=== PATIENT | female | born 1975 | race Caucasian/White ===

== ENCOUNTER 2018-04-27 00:05 | Emergency (ER) | payer MEDICARE, MEDICAID ==
[2018-04-27] MEDS ORDERED: NS 0.9% 1000 ML* 1,000 ML IV ONE (00:13)
[2018-04-27] MEDS ORDERED: Ketorolac TAB * 10 MG TAB PO PRN (00:13)
[2018-04-27] MEDS ORDERED: Metoprolol Tartrate TAB* 50 mg PO ONE (00:36)
--- NOTE | 2018-04-27 00:40 | ED ---
Hypertension - HPI Summary HPI Summary: Patient is mother who brought her son in for mental health evaluation, complaining of elevated blood pressure, headache/dry mouth/feeling hot x 30 mins, and anxiousness about her son. Patient states she did not take her second dose of metoprolol 50 mg today. States baseline BP is usually around 120 /80. Denies hx of headache, neck stiffness, vision chnage, focal defict, fever , cough, sore throat, CP, SOB, N/V/D, abdominal pain, change in urine, change in BM. Medical history is HTN, hypo-prolactinemia, anxiety. - History of Current Complaint Chief Complaint: EDHypertension Stated Complaint: HIGH BP Time Seen by Provider: 04/27/18 00:11 Hx Obtained From: Patient Onset/Duration: Started Minutes Ago Timing: Constant Associated Signs & Symptoms: Anxiety/Stress, Headaches - Risk Factors Cardiac Risk Factors: Hypertension - Allergies/Home Medications Allergies/Adverse Reactions: Allergies Allergy/AdvReac Type Severity Reaction Status Date / Time meperidine [From Demerol] Allergy Palpitation Verified 04/27/18 00:08 s morphine Allergy Palpitation Verified 04/27/18 00:08 s Home Medications: Home Medications Fenofibrate 150 mg .ROUTE DAILY 04/27/18 [History Confirmed 04/27/18] Fish Oil (NF) 1,000 mg PO DAILY 04/27/18 [History Confirmed 04/27/18] LORazepam TAB(*) [Ativan 0.5 MG TAB (*)] 0.5 mg PO DAILY 04/27/18 [History Confirmed 04/27/18] Lamictal 50 mg PO DAILY 04/27/18 [History Confirmed 04/27/18] Metoprolol Tartrate TAB* [Lopressor TAB*] 50 mg PO BID 04/27/18 [History Confirmed 04/27/18] Vitamin B12 500 mg PO DAILY 04/27/18 [History Confirmed 04/27/18] Vitamin D TAB* 500 mg PO DAILY 04/27/18 [History Confirmed 04/27/18] PMH/Surg Hx/FS Hx/Imm Hx Endocrine/Hematology History: Denies: Hx Anticoagulant Therapy Cardiovascular History: Denies: Hx Cardiac Arrest History: Denies: Hx Dialysis Neurological History: Denies: Hx CVA Infectious Disease History: No Infectious Disease History: Denies: Traveled Outside the [place] in Last 30 Days - Social History Alcohol Use: None Substance Use Type: Reports: None Smoking Status (MU): Never Smoked Tobacco Review of Systems Constitutional: Negative Eyes: Negative ENT: Negative Cardiovascular: Negative Respiratory: Negative Gastrointestinal: Negative Genitourinary: Negative Musculoskeletal: Negative Skin: Negative Positive: Headache Positive: Anxious All Other Systems Reviewed And Are Negative: Yes Physical Exam Triage Information Reviewed: Yes Vital Signs On Initial Exam: Initial Vitals Temp Pulse Resp BP Pulse Ox 97.1 F 69 20 163/101 99 04/27/18 00:08 04/27/18 00:08 04/27/18 00:08 04/27/18 00:08 04/27/18 00:08 Vital Signs Reviewed: Yes Appearance: Positive: Well-Appearing Skin: Positive: Warm Head/Face: Positive: Normal Head/Face Inspection Eyes: Positive: Normal Neck: Positive: Supple Respiratory/Lung Sounds: Positive: Clear to Auscultation Cardiovascular: Positive: Normal Abdomen Description: Positive: Nontender Musculoskeletal: Positive: Normal Neurological: Positive: Normal Psychiatric: Positive: Normal AVPU Assessment: Alert - Devine Coma Scale Best Eye Response: 4 - Spontaneous Best Motor Response: 6 - Obeys Commands Best Verbal Response: 5 - Oriented Coma Scale Total: 15 Diagnostics - Vital Signs Vital Signs Temp Pulse Resp BP Pulse Ox 04/27/18 00:08 97.1 F 69 20 163/101 99 - Laboratory Lab Statement: Any lab studies that have been ordered have been reviewed, and results considered in the medical decision making process. - EKG 1 Cardiac Rate: NL EKG Rhythm: Sinus Rhythm ST Segment: Normal Ectopy: PVCs Hypertension Course/Dx - Course Course Of Treatment: Patient is mother who brought her son in for mental health evaluation, complaining of elevated blood pressure, headache/dry mouth/feeling hot x 30 mins, and anxiousness about her son. Patient states she did not take her second dose of metoprolol 50 mg today. States baseline BP is usually around 120/80. Denies hx of headache, neck stiffness, vision chnage, focal defict, fever, cough, sore throat, CP, SOB, N/V/D, abdominal pain, change in urine, change in BM. Medical history is HTN, hypo-prolactinemia, anxiety. Vital signs within normal limits and stable. Blood pressure 163/101. Patient states she could not take her second dose of metoprolol tartrate 50 mg at as she was here with her son who was admitted to mental health, was given her usual dose of metoprolol tartrate 50 mg by mouth here in ED, and 30 mg IV Toradol and 1 L of fluids for headache. Patient resting comfortably. BP 129/ 76. Follow-up with primary care. - Diagnoses Provider Diagnoses: Headache, Anxiousness Discharge - Sign-Out/Discharge Documenting (check all that apply): Patient Departure - Discharge Plan Condition: Stable Disposition: HOME Patient Education Materials: Stress (ED), Acute Headache (ED), Anxiety (ED) Referrals: No Primary Care Phys,NOPCP [Medical Doctor] - Additional Instructions: Follow-up with primary care. Return to the ED for any new or worsening symptoms - Billing Disposition and Condition Condition: STABLE Disposition: Home
[2018-04-27] MEDS ORDERED: Ketorolac INJ* 30 MG/ML 1 ML VIAL IV ONE (00:57)
[2018-04-27 02:23] VITALS: BP 117/68
== END 2018-04-27 02:22 | disposition home or self-care (01) ==
LOC: ED 00:05
DX: R51 Headache (principal); F41.9 Anxiety disorder, unspecified
CPT/HCPCS: 93005; 99283; A9270-GY; J1885

== ENCOUNTER 2018-09-13 08:31 | Inpatient (IN) | payer MEDICARE, MEDICAID ==
[2018-09-13 10:09] LABS: Urine Appearance Cloudy; Urine Bilirubin Negative (Negative); Urine Blood Negative (Negative); Urine Color Yellow; Urine Glucose Negative (Negative); Urine Ketones Negative (Negative); Urine Nitrite Negative (Negative); Urine Protein Negative (Negative); Urine Specific Gravity 1.015 (1.010-1.030); Urine Urobilinogen Negative (Negative)
--- NOTE | 2018-09-13 10:09 | ED ---
Psychiatric Complaint - HPI Summary HPI Summary: Patient presents to ED with suicidal ideations and plan (overdose on pills at home). She reports yesterday her mom called [facility] and the CPS worker agreed that she may lose her children due to her lack of consistent care with her oldest son , 17 y.o., who has behavioral and mental health issues - he also has a counselor and is on PINS. This patient reports she lost her children 10 years ago d/t substance abuse/dependence and has worked very hard to get him back so hearing this news was very traumatic for her. She reports she has not been coping well since hearing this news yesterday and developed voices which she states she has when she feels suicidal. She told her last night she wanted to come to the hospital for evaluation but he was worried about it affecting her case to keep her kids however she realized today this is the best place for her. She made arrangements prior to coming here for her children to be safe and have an emergency crisis visit with yessy counselor as she knew this would be hard not only for her but also for them. She is currently reeling from this potential decision of having her children taken away - she feels she has been very involved in her own mental health care as well as her children's to make everything work in their home. She does admit recent stressors have been the fact that she has had to reduce her Lamictal due to elevated liver enzymes. She thinks this may be affecting her ability to cope with stress recently however she is continuing to use her own coping mechanisms such as DBT, speaking with her peer advocate and counselor, etc. She also admits her oldest son recently underwent some stress himself resulting in suicidal ideations where she brought him to the emergency department for eval. CPS is telling her that she triggered him by doing this however she was quite worried about him and felt it was the right thing to do. She reports a history of substance abuse which is why she lost her children 10 years ago. She states she has been "clean" for many years now and attends all of her mental health appointments as well as makes valiant efforts to get her children to their mental health appointments. She does admit she is to an alcoholic which is why she made arrangements for her children to go with someone else last night instead of staying with him as he has already been deemed unfit to care for her children. She reports her suicidal ideations have been triggered by the thought of losing her children as she states "I told myself if I lose them again, I don't think I can go on". Although she mentioned "I was looking at my pill bottles last night ", she denies overdosing on any of her medications or ingesting any other substances in an effort to end her life. She does report she took one Ativan which is prescribed to her as needed. Furthermore she admits she has not taken these in many months as she has been doing quite well. - History Of Current Complaint Chief Complaint: EDMentalHealth Time Seen by Provider: 09/13/18 08:41 Hx Obtained From: Patient - Allergies/Home Medications Allergies/Adverse Reactions: Allergies Allergy/AdvReac Type Severity Reaction Status Date / Time meperidine [From Demerol] Allergy Palpitation Verified 09/13/18 08:33 s morphine Allergy Palpitation Verified 09/13/18 08:33 s PMH/Surg Hx/FS Hx/Imm Hx Previously Healthy: Yes Endocrine/Hematology History: Reports: Other Endocrine/Hematological Disorders - pituitary dysfunction, MARCELINA - on hormone therapy Denies: Hx Anticoagulant Therapy, Hx Diabetes, Hx Thyroid Disease, Hx Anemia Cardiovascular History: Denies: Hx Cardiac Arrest History: Denies: Hx Dialysis Neurological History: Denies: Hx CVA Psychiatric History: Reports: Hx Inpatient Treatment - h/o inpt tx [facility], Hx Community Mental Health Tx, Hx Substance Abuse - "clean" for many years Infectious Disease History: No Infectious Disease History: Denies: Traveled Outside the [place] in Last 30 Days - Family History Known Family History: Positive: Other - son w / bipolar d/o, ETOH abuse - Social History Lives: With Family - and children Alcohol Use: Occasionally - once a month Hx Substance Use: Yes - h/o - "clean" for many years Hx Tobacco Use: No Smoking Status (MU): Never Smoked Tobacco Review of Systems Constitutional: Negative Eyes: Negative ENT: Negative Cardiovascular: Negative Respiratory: Negative Gastrointestinal: Other - reduced appetite since news from CPS Positive: no symptoms reported Musculoskeletal: Negative Skin: Negative Neurological: Negative Psychological: Other - SI w/ plan Positive: Anxious All Other Systems Reviewed And Are Negative: Yes Physical Exam Triage Information Reviewed: Yes Vital Signs On Initial Exam: Initial Vitals Temp Pulse Resp BP Pulse Ox 98.2 F 97 19 142/104 98 01/10/19 08:33 09/13/18 08:33 09/13/18 08:33 09/13/18 08:33 09/13/18 08:33 Vital Signs Reviewed: Yes Appearance: Positive: Well-Appearing - tearful, Well-Nourished Skin: Positive: Warm, Skin Color Reflects Adequate Perfusion, Dry - no signs of self harm Head/Face: Positive: Normal Head/Face Inspection Eyes: Positive: Normal, EOMI, Conjunctiva Clear ENT: Positive: Normal ENT inspection, Hearing grossly normal, Pharynx normal - mucosa moist Neck: Positive: Supple - no gross thyromegaly Respiratory/Lung Sounds: Positive: Clear to Auscultation, Breath Sounds Present Cardiovascular: Positive: Normal, RRR, S1, S2 Abdomen Description: Positive: Nontender, No Organomegaly, Soft Bowel Sounds: Positive: Present Musculoskeletal: Positive: Normal, Strength/ROM Intact Neurological: Positive: Normal, Sensory/Motor Intact, Alert, Oriented to Person Place, Time, CN Intact II-III Psychiatric: Positive: Anxious - SI w/ plan, tearful but consolable - no apparent hallucinations during interview, presents as rational - Rodman Coma Scale Best Eye Response: 4 - Spontaneous Best Motor Response: 6 - Obeys Commands Best Verbal Response: 5 - Oriented Coma Scale Total: 15 Diagnostics - Vital Signs Vital Signs Temp Pulse Resp BP Pulse Ox 09/13/18 08:33 98.2 F 97 19 142/104 98 - Laboratory Result Diagrams: 09/13/18 10:02 09/13/18 10:02 Lab Statement: Any lab studies that have been ordered have been reviewed, and results considered in the medical decision making process. Course/Dx - Course Course Of Treatment: SI w/ plan and previous OD and bipolar d/o. HAs outpt support but feels she's in crisis currently due to situation around her rights as a parent/child custody. Medically cleared for [facility]. UPDATE: Will be admitted here to [facility] on voluntary basis. - Differential Dx/Clinical Impression Provider Diagnosis: Suicidal ideation, Bipolar disorder Discharge - Sign-Out/Discharge Documenting (check all that apply): Patient Departure - Discharge Plan Condition: Stable [facility] [place] [facility] Billing Disposition and Condition Condition: STABLE Disposition: Psychiatric Facility [facility] [place]
[2018-09-13 10:11] LABS: ABS Basophils 0 10^3/ul (0-0.2); ABS Eosinophils 0 10^3/ul (0-0.6); ABS Lymphocytes 1.7 10^3/ul (1.0-4.8); ABS Monocytes 0.3 10^3/ul (0-0.8); ABS Nucleated RBC 0 10^3/ul; Eosinophil % 0.4 %; Hematocrit 41 % (35-47); Hemoglobin 13.8 g/dl (12.0-16.0); Lymphocyte % 33.3 %; Mean Corpuscular HGB Conc 34 g/dl (31-36); Mean Corpuscular Hemoglobin 30 pg (27-31); Mean Corpuscular Volume 89 fL (80-97); Mean Platelet Volume 8.7 fL (7.4-10.4); Nucleated Red Blood Cells % 0.1; Platelet Count 316 10^3/ul (150-450); Red Blood Count 4.58 10^6/ul (4.00-5.40); Red Cell Distribution Width 13 % (10.5-15); White Blood Count 5.1 10^3/ul (3.5-10.8)
[2018-09-13 10:30] LABS: Barbiturates Urine Screen None Detected (None Detect); Benzodiazepine Urine Screen None Detected (None Detect); Urine Cannabinoids Screen None Detected (None Detect)
[2018-09-13 10:35] LABS: ALT 40 U/L (7-52); AST 25 U/L (13-39); Albumin 4.3 g/dL (3.2-5.2); Albumin/Globulin Ratio 1.3 (1-3); Alkaline Phosphatase 57 U/L (34-104); Anion Gap 8 mmol/L (2-11); BUN/Creatinine Ratio 18.3 (8-20); Blood Urea Nitrogen 15 mg/dL (6-24); CO2 Carbon Dioxide 25 mmol/L (22-32); Chloride 105 mmol/L (101-111); EGFR Non-African American 76.5 (>60); Globulin 3.2 g/dL (2-4); Glucose 119 mg/dL (70-100); Potassium 3.9 mmol/L (3.5-5.0); Sodium 138 mmol/L (135-145); Total Protein 7.5 g/dL (6.4-8.9)
[2018-09-13 10:57] LABS: Acetaminophen < 15 mcg/mL; Alcohol < 10 mg/dL (<10); Salicylate < 2.50 mg/dL (<30)
[2018-09-13 11:09] LABS: TSH (Thyroid Stimulating Horm) 0.98 mcIU/mL (0.34-5.60)
[2018-09-13] MEDS ORDERED: Al Hydrox/Mg Hydrox/Simet LIQ* 30 ML UDC PO PRN (12:27)
[2018-09-13] MEDS ORDERED: Acetaminophen TAB* 325 MG PO PRN (12:27)
[2018-09-13 13:09] LABS: Cholesterol 170 mg/dL; HDL Cholesterol 59.7 mg/dL; LDL Cholesterol 90 mg/dL; Triglycerides 102 mg/dL
[2018-09-13] MEDS: Metoprolol Tartrate TAB* 50 mg PO SCH (21:10)
[2018-09-14] MEDS: hydrOXYzine HCL TAB* 50 MG PO PRN ×2 (00:11→23:12)
[2018-09-14] MEDS ORDERED: FENOFIBRATE 150 MG PO SCH (09:00)
[2018-09-14] MEDS: Metoprolol Tartrate TAB* 50 mg PO SCH ×2 (09:00→22:06)
--- NOTE | 2018-09-14 11:21 | PN ---
MHU: Group Therapy Note - Service Type Service Type: 10518 Group Psychotherapy - Cognitive Behavioral Group Therapy ( CBT):Patient was attentive and participatory in CBT programming this morning, and remained in good behavioral control. Patient expressed positive insights regarding relevant treatment interventions and goals.
[2018-09-14] MEDS ORDERED: lamoTRIgine TAB(*) 25 MG PO ONE (16:30)
[2018-09-14] MEDS ORDERED: Loperamide CAP* 2 MG PO ONE (16:34)
[2018-09-14] MEDS ORDERED: [UNRECOGNIZED DRUG - OTHER] PO PRN (17:00)
[2018-09-14] MEDS ORDERED: [UNRECOGNIZED DRUG - OTHER] PO SCH (17:00)
[2018-09-14] MEDS: FISH OIL 1200 MG PO SCH (17:59)
[2018-09-14] MEDS: FENOFIBRATE 145 MG PO SCH (18:00)
[2018-09-14] MEDS: CYANOCOBALAMIN 500 MCG PO SCH (18:00)
[2018-09-14] MEDS: EVENING PRIMROSE OIL TOPICAL SCH (21:35)
[2018-09-14] MEDS: CABERGOLINE 0.5 MG PO SCH (21:36)
--- NOTE | 2018-09-14 23:35 | HP ---
CONTINUATION ADDENDUM NOW INCLUDED ON THIS REPORT HISTORY AND PHYSICAL: DATE OF ADMISSION: 09/13/18 PROVIDER: Dalila Alford NP in Psychiatry. SUPERVISING PHYSICIAN: Gavin Lepe MD * (DICTATED BY DALILA ALFORD NP ) JUSTIFICATION FOR ADMISSION: The patient is in need of 24-hour supervision and care secondary to suicidal ideation with plan. CHIEF COMPLAINT: "I was thinking of taking my blood pressure medications because I wanted to go to sleep and not wake up." HISTORY OF PRESENT ILLNESS: The patient is a 42-year-old female with a history of bipolar disorder as well as borderline personality disorder who arrives brought in by her and is here on a voluntary status following her children being taken temporarily away from her by CPS and given to her mother, which caused her to fall to pieces and have suicidal thoughts that included a plan to take her blood pressure medications. Delma has been hospitalized periodically since age 19. This is her first hospitalization in 5 years and she is quite distressed that that is the case. She states that she has in the recent past been able to use coping strategies, yet without using those coping strategies, all she can think about are her children. Her is not completely supportive of her. He is also an alcoholic. CPS states that she is essentially choosing to stay with an alcoholic in preference over her children. She states that she must have the children, otherwise she will "go over the edge....she cannot breathe without them." The children's names are Joon and Mumtaz. Joon is 17, Mumtaz is 14. CONTINUATION ADDENDUM: PAST PSYCHIATRIC HISTORY: She has been admitted before to the hospital starting at age 19. Her last hospitalization was in 2013 and she is frustrated with herself for going back to the hospital. She states at age 32, she was diagnosed with bipolar 2 disorder as well as borderline personality disorder. Throughout her life, she has had 3 suicide attempts by overdose and alcohol. She had been on Lamictal 100 mg, but she reports that her liver enzymes became elevated. She would like to try 50 mg of Lamictal. She states that Depakote caused her liver enzymes to increase, Wellbutrin made her breasts hurt, Latuda and lithium both increased prolactin. She has found that Ativan has worked well , hydroxyzine has not worked at all. She states she never misuses the Ativan. She has had a 1-month prescription that has lasted for longer than 3 months. SUBSTANCE ABUSE HISTORY: Currently none, but in her past, she has used and abused several drugs. PAST MEDICAL HISTORY: Extensive and that she just reacts to many, many medications and situations. She has had significant experience with liver enzymes being elevated and impairment in her kidneys. FAMILY HISTORY: Delma was adopted and does not know her family history. SOCIAL HISTORY: She lives in [place], [place] and is to a man named Kunal Tolentino. She has a job at [employer]. She has 2 children, Joon and Mumtaz. She is involved in a CPS case that has resulted in her two children being taken from her and sent to live with her mother. There are no legal problems. REVIEW OF SYSTEMS: The patient reports feeling fatigued. She denies shortness of breath, heat or cold intolerance, chest pain or abdominal pain. She denies neurological symptoms. She denies fevers or changes in weight. PHYSICAL EXAMINATION VITAL SIGNS: On 09/13/18 at 8:30 in the morning, temperature was 98.2, pulse 97 , respirations 19, O2 sat on room air 98%, blood pressure 142/104. At 1235, the blood pressure has been reduced to 132/82. For further exam data, please see emergency department records. LABORATORY DATA: Glucose is high at 119. Hemoglobin A1c is high at 5.7. Urine, all within normal limits. Toxicology is negative. MENTAL STATUS EXAMINATION: This is a short woman with medium long dark hair, who is extremely talkative. She is cooperative, but a little agitated. Her speech has a normal rate, tone and volume, and is copious. Her mood is dysthymic. Her affect is slightly expansive. Her thought processes are normal. Her thought content is free of delusions. She is not homicidal and no longer suicidal. She has no hallucinations. Her insight is good. Her judgment is fair. She is alert and oriented x3. DIAGNOSES: [place] I: Bipolar 2 disorder. [place] II: Borderline personality disorder. PLAN: The patient is admitted to the adult behavioral health unit and placed on q.15-minute checks for her own safety. She is encouraged to participate in supportive milieu, individual and group therapies. Estimated length of stay is 3 to 7 days. We will titrate medications to efficacy and monitor for mood and thought content. Discharge planning will include family involvement and outpatient providers. DALILA ALFORD, SHERLY [id number]/CPS #: [id number]/CPS #: [id number] ROSARIO
[2018-09-14] MEDS: Benzocaine/Menthol LOZ* 1 LOZENGE PO PRN (23:40)
[2018-09-15] MEDS: Metoprolol Tartrate TAB* 50 mg PO SCH ×2 (08:43→20:36)
[2018-09-15] MEDS: EVENING PRIMROSE OIL TOPICAL SCH ×2 (08:45→20:37)
--- NOTE | 2018-09-15 14:14 | PN ---
Subjective - Subjective Date of Service: 09/15/18 Service Type: 24429 Hosp care 15 min low complexity Subjective: Americo is seen in weekend coverage for NPP, Dalila Alford. The patient complains about her alcoholic and her 17 y.o. son with ODD. She states that she needs to be here to think things through and get back on lamotrigine. She denies SI today but is very upset about her children being taken by CPS over to their grandparents' house. She feels safe and is requesting enhanced unit privileges. Objective - Appearance Appearance: Well Developed/Nourished Dysmorphic Features: No Hygiene: Normal Grooming: Well Kept - Behavior Psychomotor Activities: Normal Exhibits Abnormal Movement: No - Attitude and Relatedness Attitude and Relatedness: Cooperative Eye Contact: Fair - Speech Quality: Unpressured Latencies: Normal Quantity: Appropriate - Mood Patient's Decription of Mood: "Anxious" - Affect Observed Affect: Constricted Affect Consistent with: Dysphoria - Thought Process Patient's Thought Process: Coherent Thought Content: No Passive Wish, No Suicidal Planning, No Homicidal Ideation, No Paranoid Ideation - Sensorium Experiencing Hallucinations: No, Sensorium is Clear Type of Hallucinations: Visual: No, Auditory: No, Command: No - Level of Consciousness Level of Consciousness: Alert Orientation: Yes Intact, Yes Orientated to Time, Yes Orientated to Place, Yes Orientated to Person - Impulse Control Impulse Control: Tenuous - Insight and Judgement Insight and Judgement: Fair - Group Participation Particating in Group Activities: Yes - Medication Management Medication Management Adherence: Yes Assessment - Assessment Merits Inpatient Hospitalization: For Immediate Safety, For Stabilization Inpatient DSM-V Dx: F31.81 Clinical Impression: 42 y.o. , female with a history of bipolar disorder and borderline PD arrived at the hospital on a voluntary basis seeking inpatient care for depressed mood and SI in the context of discontinuation of mood stabilizer and family stress. MHU: Problem List - Patient Problems (1) Bipolar 2 disorder Current Visit: Yes Status: Acute Priority: High Code(s): F31.81 - BIPOLAR II DISORDER SNOMED Code(s): 00297949 Plan - Plan Treatment Plan: Name: AMERICO CHAPARRO Birthdate: 1975 [id number] Resume lamotrigine at 50mg PO qday. Continue inpatient-level care. Continued Medication Management: Continue Outpt Medication Medications: Current Medications Acetaminophen (Tylenol Tab*) 650 mg PO Q4H PRN PRN Reason: for pain; or Temp >101 F Al Hydrox/Mg Hydrox/Simethicone (Maalox Plus*) 30 ml PO Q4H PRN PRN Reason: INDIGESTION Hydroxyzine HCl (Atarax Tab*) 50 mg PO Q6H PRN PRN Reason: ANXIETY Last Admin: 09/14/18 23:12 Dose: 50 mg Lamotrigine (Lamictal Tab(*)) 50 mg PO DAILY [facility] Lorazepam (Ativan Tab(*)) 1 mg PO Q6H PRN PRN Reason: ANXIETY Metoprolol Tartrate (Lopressor Tab*) 50 mg PO BID [facility] Last Admin: 09/15/18 08:43 Dose: 50 mg Pto Nf Med* Cabergoline 0.5 Mg Tab 0.5 admin PO MoFr@2100 [facility] Last Admin: 09/14/18 21:36 Dose: 0.5 admin Pto Nf Med* Fenofibrate 145 Mg Tab 1 admin PO 1830 [facility] Last Admin: 09/14/18 18:00 Dose: 1 admin Pto Nf Med* Fish Oil (1200 Mg) 1 admin PO 1700 [facility] Last Admin: 09/14/18 17:59 Dose: 1 admin Pto Nf Med* B12 500 (Mcg) 1 admin PO 1700 [facility] Last Admin: 09/14/18 18:00 Dose: Not Given Pt Own Nf Med* Evening Gustavus Oil 1000 Mg. 1 admin TOPICAL BID [facility] Last Admin: 09/15/18 08:45 Dose: 1 admin Non Formulary Med7* (Ricola Cough Drops.) 1 admin PO Q2H PRN PRN Reason: COUGH Throat Lozenges (Chloraseptic Dorian*) 1 dorian PO Q6H PRN PRN Reason: SORE THROAT Last Admin: 09/14/18 23:40 Dose: 1 dorian - Discharge Plan Discharge Plan: Inpatient Hospitalization Lab Results - Lab Results Lab Results: 09/13/18 09/13/18 09/13/18 09:15 09:15 10:02 WBC 5.1 RBC 4.58 Hgb 13.8 Hct 41 MCV 89 MCH 30 MCHC 34 RDW 13 Plt Count 316 MPV 8.7 Neut % (Auto) 59.6 Lymph % (Auto) 33.3 Pendleton % (Auto) 5.8 Eos % (Auto) 0.4 Baso % (Auto) 0.9 Absolute Neuts (auto) 3.0 Absolute Lymphs (auto) 1.7 Absolute Monos (auto) 0.3 Absolute Eos (auto) 0 Absolute Basos (auto) 0 Absolute Nucleated RBC 0 Nucleated RBC % 0.1 Sodium Potassium Chloride Carbon Dioxide Anion Gap BUN Creatinine Est GFR ( Amer) Est GFR (Non-Af Amer) BUN/Creatinine Ratio Glucose Hemoglobin A1c Calcium Total Bilirubin AST ALT Alkaline Phosphatase Total Protein Albumin Globulin Albumin/Globulin Ratio Triglycerides Cholesterol LDL Cholesterol HDL Cholesterol TSH Urine Color Yellow Urine Appearance Cloudy Urine pH 6.0 Ur Specific Elida 1.015 Urine Protein Negative Urine Ketones Negative Urine Blood Negative Urine Nitrate Negative Urine Bilirubin Negative Urine Urobilinogen Negative Ur Leukocyte Esterase Negative Urine Glucose Negative Salicylates Urine Opiates Screen None detected Acetaminophen Ur Barbiturates Screen None detected Ur Phencyclidine Scrn None detected Ur Amphetamines Screen None detected U Benzodiazepines Scrn None detected Urine Cocaine Screen None detected U Cannabinoids Screen None detected Serum Alcohol 09/13/18 09/13/18 10:02 10:02 WBC RBC Hgb Hct MCV MCH MCHC RDW Plt Count MPV Neut % (Auto) Lymph % (Auto) Pendleton % (Auto) Eos % (Auto) Baso % (Auto) Absolute Neuts (auto) Absolute Lymphs (auto) Absolute Monos (auto) Absolute Eos (auto) Absolute Basos (auto) Absolute Nucleated RBC Nucleated RBC % Sodium 138 Potassium 3.9 Chloride 105 Carbon Dioxide 25 Anion Gap 8 BUN 15 Creatinine 0.82 Est GFR ( Amer) 92.5 Est GFR (Non-Af Amer) 76.5 BUN/Creatinine Ratio 18.3 Glucose 119 H Hemoglobin A1c 5.7 H Calcium 10.0 Total Bilirubin 0.40 AST 25 ALT 40 Alkaline Phosphatase 57 Total Protein 7.5 Albumin 4.3 Globulin 3.2 Albumin/Globulin Ratio 1.3 Triglycerides 102 Cholesterol 170 LDL Cholesterol 90 HDL Cholesterol 59.7 TSH 0.98 Urine Color Urine Appearance Urine pH Ur Specific Elida Urine Protein Urine Ketones Urine Blood Urine Nitrate Urine Bilirubin Urine Urobilinogen Ur Leukocyte Esterase Urine Glucose Salicylates < 2.50 Urine Opiates Screen Acetaminophen < 15 Ur Barbiturates Screen Ur Phencyclidine Scrn Ur Amphetamines Screen U Benzodiazepines Scrn Urine Cocaine Screen U Cannabinoids Screen Serum Alcohol < 10
[2018-09-15] MEDS: lamoTRIgine TAB(*) 25 MG PO SCH (15:22)
[2018-09-15] MEDS: FISH OIL 1200 MG PO SCH (20:36)
[2018-09-15] MEDS: FENOFIBRATE 145 MG PO SCH (20:37)
[2018-09-15] MEDS: CYANOCOBALAMIN 500 MCG PO SCH (20:39)
[2018-09-15] MEDS: hydrOXYzine HCL TAB* 50 MG PO PRN (22:35)
[2018-09-15] MEDS: Benzocaine/Menthol LOZ* 1 LOZENGE PO PRN (22:35)
[2018-09-16] MEDS: Metoprolol Tartrate TAB* 50 mg PO SCH ×3 (07:55→20:57)
[2018-09-16] MEDS: lamoTRIgine TAB(*) 25 MG PO SCH (07:56)
[2018-09-16] MEDS: Benzocaine/Menthol LOZ* 1 LOZENGE PO PRN ×2 (10:02→21:37)
[2018-09-16] MEDS: EVENING PRIMROSE OIL TOPICAL SCH ×2 (11:12→20:58)
[2018-09-16] MEDS: FISH OIL 1200 MG PO SCH (17:51)
[2018-09-16] MEDS: FENOFIBRATE 145 MG PO SCH (17:51)
[2018-09-16] MEDS: CYANOCOBALAMIN 500 MCG PO SCH (17:52)
[2018-09-17] MEDS: hydrOXYzine HCL TAB* 50 MG PO PRN (04:17)
[2018-09-17] MEDS: EVENING PRIMROSE OIL TOPICAL SCH ×2 (09:15→20:16)
[2018-09-17] MEDS: Metoprolol Tartrate TAB* 50 mg PO SCH ×2 (09:16→20:16)
[2018-09-17] MEDS: lamoTRIgine TAB(*) 25 MG PO SCH (09:16)
--- NOTE | 2018-09-17 11:30 | PN ---
MHU: Group Therapy Note - Service Type Service Type: [id number] Group Psychotherapy - CBT group note: Delma was attentive and participatory in cbt programming this morning, discussing upcoming decisions she is grappling with regarding family issues. She impresses as having good insight and judgement presently, but describes difficulties with changing medications and experiencing bipolar symptoms periodically. She is well related and empathic related with staff and peers.
[2018-09-17] MEDS: LORazepam TAB(*) 1 MG PO PRN (13:56)
--- NOTE | 2018-09-17 14:31 | HP ---
HISTORY AND PHYSICAL: DATE OF ADMISSION: 09/13/18 ADDENDUM: PAST PSYCHIATRIC HISTORY: She has been admitted before to the hospital starting at age 19. Her last hospitalization was in 2013 and she is frustrated with herself for going back to the hospital. She states at age 32, she was diagnosed with bipolar 2 disorder as well as borderline personality disorder. Throughout her life, she has had 3 suicide attempts by overdose and alcohol. She had been on Lamictal 100 mg, but she reports that her liver enzymes became elevated. She would like to try 50 mg of Lamictal. She states that Depakote caused her liver enzymes to increase, Wellbutrin made her breasts hurt, Latuda and lithium both increased prolactin. She has found that Ativan has worked well , hydroxyzine has not worked at all. She states she never misuses the Ativan. She has had a 1-month prescription that has lasted for longer than 3 months. SUBSTANCE ABUSE HISTORY: Currently none, but in her past, she has used and abused several drugs. PAST MEDICAL HISTORY: Extensive and that she just reacts to many, many medications and situations. She has had significant experience with liver enzymes being elevated and impairment in her kidneys. FAMILY HISTORY: Delma was adopted and does not know her family history. SOCIAL HISTORY: She lives in [place], [place] and is to a man named Kunal Tolentino. She has a job at [employer]. She has 2 children, Joon and Mumtaz. There are no legal problems. REVIEW OF SYSTEMS: The patient reports feeling fatigued. She denies shortness of breath, heat or cold intolerance, chest pain or abdominal pain. She denies neurological symptoms. She denies fevers or changes in weight. PHYSICAL EXAMINATION VITAL SIGNS: On 09/13/18 at 8:30 in the morning, temperature was 98.2, pulse 97 , respirations 19, O2 sat on room air 98%, blood pressure 142/104. At 1235, the blood pressure has been reduced to 132/82. For further exam data, please see emergency department records. LABORATORY DATA: Glucose is high at 119. Hemoglobin A1c is high at 5.7. Urine, all within normal limits. Toxicology is negative. MENTAL STATUS EXAMINATION: This is a short woman with medium long dark hair, who is extremely talkative. She is cooperative, but a little agitated. Her speech has a normal rate, tone and volume and is copious. Her mood is dysthymic. Her affect is slightly expansive. Her thought processes are normal. Her thought content is free of delusions. She is not homicidal and no longer suicidal. She has no hallucinations. Her insight is good. Her judgment is fair. She is alert and oriented x3. DIAGNOSES: [place] I: Bipolar 2 disorder. [place] II: Borderline personality disorder. PLAN: The patient is admitted to the adult behavioral health unit and placed on q.15-minute checks for her own safety. She is encouraged to participate in supportive milieu, individual and group therapies. Estimated length of stay is 3 to 7 days. We will titrate medications to efficacy and monitor for mood and thought content. Discharge planning will include family involvement and outpatient providers.+ MANUEL LINDSEY, SHERLY [id number]/CPS #: [id number] ROSARIO
--- NOTE | 2018-09-17 15:19 | PN ---
Subjective - Subjective Date of Service: 09/17/18 Service Type: 96244 Hosp care 25 min moderate complexity Subjective: Americo feels like her identity is very tied up in her son Joon's behavior, as well as in Mumtaz's absence from her home. She states, "If I lose my kids again , I can't live!" She is adamant and upset and tearful. She is mostly unable to refocus on herself and how she could get better. She required a dose of Ativan to calm her. Objective - Appearance Appearance: Well Developed/Nourished Dysmorphic Features: No Hygiene: Normal Grooming: Well Kept - Behavior Psychomotor Activities: Normal Exhibits Abnormal Movement: No - Attitude and Relatedness Attitude and Relatedness: Needy Eye Contact: Good - Speech Quality: Pressured Latencies: Normal Quantity: Copious - Mood Patient's Decription of Mood: "Sad" - Affect Observed Affect: Labile Affect Consistent with: Dysphoria - Thought Process Patient's Thought Process: Circumstantial Thought Content: Yes Passive Wish, Yes Suicidal Planning, No Homicidal Ideation, No Paranoid Ideation - Sensorium Experiencing Hallucinations: No, Sensorium is Clear Type of Hallucinations: Visual: No, Auditory: No, Command: No - Level of Consciousness Level of Consciousness: Agitated Orientation: Yes Intact, Yes Orientated to Time, Yes Orientated to Place, Yes Orientated to Person - Impulse Control Impulse Control: Impaired - Insight and Judgement Insight and Judgement: Poor - Group Participation Particating in Group Activities: Yes - Medication Management Medication Management Adherence: Yes Assessment - Assessment Merits Inpatient Hospitalization: For Immediate Safety, For Discharge Planning Inpatient DSM-V Dx: F31.81 Clinical Impression: 42 y.o. , female with a history of bipolar disorder and borderline PD arrived at the hospital on a voluntary basis seeking inpatient care for depressed mood and SI in the context of discontinuation of mood stabilizer and family stress. Plan - Plan Treatment Plan: Name: AMERICO CHAPARRO Birthdate: 1975 [id number] Resume lamotrigine at 50mg PO qday. Continue inpatient-level care. Add Ativan 1 mg at bedtime for sleep. Continue working with Aleyda Jeter LCSW, to interact with CPS. Medications: Current Medications Acetaminophen (Tylenol Tab*) 650 mg PO Q4H PRN PRN Reason: for pain; or Temp >101 F Al Hydrox/Mg Hydrox/Simethicone (Maalox Plus*) 30 ml PO Q4H PRN PRN Reason: INDIGESTION Hydroxyzine HCl (Atarax Tab*) 50 mg PO Q6H PRN PRN Reason: ANXIETY Last Admin: 09/17/18 04:17 Dose: 50 mg Lamotrigine (Lamictal Tab(*)) 50 mg PO DAILY [facility] Last Admin: 09/17/18 09:16 Dose: 50 mg Lorazepam (Ativan Tab(*)) 1 mg PO Q6H PRN PRN Reason: ANXIETY Last Admin: 09/17/18 13:56 Dose: 1 mg Lorazepam (Ativan Tab(*)) 1 mg PO BEDTIME [facility] Metoprolol Tartrate (Lopressor Tab*) 50 mg PO BID [facility] Last Admin: 09/17/18 09:16 Dose: 50 mg Pto Nf Med* Cabergoline 0.5 Mg Tab 0.5 admin PO MoFr@2100 [facility] Last Admin: 09/14/18 21:36 Dose: 0.5 admin Pto Nf Med* Fenofibrate 145 Mg Tab 1 admin PO 1830 [facility] Last Admin: 09/16/18 17:51 Dose: 1 admin Pto Nf Med* Fish Oil (1200 Mg) 1 admin PO 1700 [facility] Last Admin: 09/16/18 17:51 Dose: 1 admin Pto Nf Med* B12 500 (Mcg) 1 admin PO 1700 [facility] Last Admin: 09/16/18 17:52 Dose: 1 admin Pt Own Nf Med* Evening [place] Oil 1000 Mg. 1 admin TOPICAL BID [facility] Last Admin: 09/17/18 09:15 Dose: Not Given Non Formulary Med7* (Ricola Cough Drops.) 1 admin PO Q2H PRN PRN Reason: COUGH Last Admin: 09/15/18 20:37 Dose: 1 admin Throat Lozenges (Chloraseptic Dorian*) 1 dorian PO Q6H PRN PRN Reason: SORE THROAT Last Admin: 09/16/18 21:37 Dose: 1 dorian - Discharge Plan Discharge Plan: Outpatient Follow Up
[2018-09-17] MEDS: CYANOCOBALAMIN 500 MCG PO SCH (17:44)
[2018-09-17] MEDS: FISH OIL 1200 MG PO SCH (17:44)
[2018-09-17] MEDS: FENOFIBRATE 145 MG PO SCH (17:45)
[2018-09-17] MEDS: LORazepam TAB(*) 1 MG PO SCH (20:17)
[2018-09-17] MEDS: CABERGOLINE 0.5 MG PO SCH (20:59)
[2018-09-17] MEDS ORDERED: [UNRECOGNIZED DRUG - OTHER] TRANSDERM SCH (22:00)
[2018-09-17] MEDS ORDERED: ESTRADIOL TRANSDERM SCH (22:00)
[2018-09-18] MEDS: lamoTRIgine TAB(*) 25 MG PO SCH (08:24)
[2018-09-18] MEDS: Metoprolol Tartrate TAB* 50 mg PO SCH ×2 (08:24→20:52)
[2018-09-18] MEDS: EVENING PRIMROSE OIL TOPICAL SCH ×2 (08:24→20:47)
--- NOTE | 2018-09-18 11:29 | PN ---
MHU: Group Therapy Note - Service Type Service Type: [id number] Group Psychotherapy - Cognitive Behavioral Group Therapy ( CBT):Patient was attentive and participatory in CBT programming this morning, and remained in good behavioral control. Patient expressed positive insights regarding relevant treatment interventions and goals.
--- NOTE | 2018-09-18 16:05 | PN ---
Subjective - Subjective Date of Service: 09/18/18 Service Type: [id number] Hosp care 25 min moderate complexity Subjective: Juliana is very upset today. She is having a hard time finding solace in her life situation. She quickly dissolves into tears and deviates from discussion of her being powerful and returns to the old plan of drinking a bottle of wine and taking all of her medications. She states she is afraid to go home because of this eventuality. Objective - Appearance Appearance: Well Developed/Nourished Dysmorphic Features: No Hygiene: Normal Grooming: Fairly Well Kept - Behavior Psychomotor Activities: Normal Exhibits Abnormal Movement: No - Attitude and Relatedness Attitude and Relatedness: Needy Eye Contact: Good - Speech Quality: Unpressured Latencies: Normal Quantity: Copious - Mood Patient's Decription of Mood: "Anxious" - Affect Observed Affect: Tearful Affect Consistent with: Dysphoria - Thought Process Patient's Thought Process: Coherent Thought Content: Yes Passive Wish, Yes Suicidal Planning, No Homicidal Ideation, No Paranoid Ideation - Sensorium Experiencing Hallucinations: No, Sensorium is Clear Type of Hallucinations: Visual: No, Auditory: No, Command: No - Level of Consciousness Level of Consciousness: Alert Orientation: Yes Intact, Yes Orientated to Time, Yes Orientated to Place, Yes Orientated to Person - Impulse Control Impulse Control: Impaired - Insight and Judgement Insight and Judgement: Fair - Group Participation Particating in Group Activities: Yes - Medication Management Medication Management Adherence: Yes Assessment - Assessment Merits Inpatient Hospitalization: For Immediate Safety Inpatient DSM-V Dx: F31.81 Clinical Impression: 42 y.o. , female with a history of bipolar disorder and borderline PD arrived at the hospital on a voluntary basis seeking inpatient care for depressed mood and SI in the context of discontinuation of mood stabilizer and family stress. Plan - Plan Treatment Plan: Name: AMERICO CHAPARRO Birthdate: 1975 [id number] Resume lamotrigine at 50mg PO qday. Continue inpatient-level care. Add Ativan 1 mg at bedtime for sleep. Continue working with Aleyda Jeter LCSW, to interact with CPS. Continue meds as they are. Continue to pursue discussion with CPS and build a plan for discharge. Medications: Current Medications Acetaminophen (Tylenol Tab*) 650 mg PO Q4H PRN PRN Reason: for pain; or Temp >101 F Al Hydrox/Mg Hydrox/Simethicone (Maalox Plus*) 30 ml PO Q4H PRN PRN Reason: INDIGESTION Estradiol (Estradiol Patch 0.0375/Day*) 1 patch TRANSDERM .TWICE WEEKLY [facility] Last Admin: 09/17/18 21:35 Dose: 1 patch Hydroxyzine HCl (Atarax Tab*) 50 mg PO Q6H PRN PRN Reason: ANXIETY Last Admin: 09/17/18 04:17 Dose: 50 mg Lamotrigine (Lamictal Tab(*)) 50 mg PO DAILY [facility] Last Admin: 09/18/18 08:24 Dose: 50 mg Lorazepam (Ativan Tab(*)) 1 mg PO Q6H PRN PRN Reason: ANXIETY Last Admin: 09/17/18 13:56 Dose: 1 mg Lorazepam (Ativan Tab(*)) 1 mg PO BEDTIME [facility] Last Admin: 09/17/18 20:17 Dose: 1 mg Metoprolol Tartrate (Lopressor Tab*) 50 mg PO BID [facility] Last Admin: 09/18/18 08:24 Dose: 50 mg Pto Nf Med* Cabergoline 0.5 Mg Tab 0.5 admin PO MoFr@2100 [facility] Last Admin: 09/17/18 20:59 Dose: 0.5 admin Pto Nf Med* Fenofibrate 145 Mg Tab 1 admin PO 1830 [facility] Last Admin: 09/17/18 17:45 Dose: 1 admin Pto Nf Med* Fish Oil (1200 Mg) 1 admin PO 1700 [facility] Last Admin: 09/17/18 17:44 Dose: 1 admin Pt Own Nf Med* Evening [place] Oil 1000 Mg. 1 admin TOPICAL BID [facility] Last Admin: 09/18/18 08:24 Dose: 1 admin Non Formulary Med7* (Ricola Cough Drops.) 1 admin PO Q2H PRN PRN Reason: COUGH Last Admin: 09/15/18 20:37 Dose: 1 admin Pto Nf Med* B12 500 (Mcg) 1 admin PO DAILY [facility] Throat Lozenges (Chloraseptic Dorian*) 1 dorian PO Q6H PRN PRN Reason: SORE THROAT Last Admin: 09/16/18 21:37 Dose: 1 dorian - Discharge Plan Discharge Plan: Outpatient Follow Up
[2018-09-18] MEDS: FISH OIL 1200 MG PO SCH (17:42)
[2018-09-18] MEDS: FENOFIBRATE 145 MG PO SCH (17:42)
[2018-09-18] MEDS: LORazepam TAB(*) 1 MG PO PRN (19:07)
[2018-09-18] MEDS: LORazepam TAB(*) 1 MG PO SCH (21:35)
[2018-09-19] MEDS: Metoprolol Tartrate TAB* 50 mg PO SCH ×2 (08:45→21:26)
[2018-09-19] MEDS: lamoTRIgine TAB(*) 25 MG PO SCH (08:45)
[2018-09-19] MEDS: CYANOCOBALAMIN 500 MCG PO SCH (08:47)
[2018-09-19] MEDS: EVENING PRIMROSE OIL TOPICAL SCH ×2 (08:48→23:59)
[2018-09-19] MEDS: FENOFIBRATE 145 MG PO SCH (17:45)
[2018-09-19] MEDS: FISH OIL 1200 MG PO SCH (17:45)
--- NOTE | 2018-09-19 18:07 | PN ---
Subjective - Subjective Date of Service: 09/19/18 Service Type: [id number] Hosp care 25 min moderate complexity Subjective: Americo has been encouraged to focus on herself and what she needs rather than what her sons are doing and what can be done for her. She talks over others and is using therapeutic terms such as "triggered" and "affirmation" without truly processing her role in those activities. When confronted with her desire to end her life, she stated that she was feeling more responsible for her role in parenting her younger child and getting better herself. The SI is not completely gone, however. Objective - Appearance Appearance: Healthy Appearing Dysmorphic Features: No Hygiene: Normal Grooming: Well Kept - Behavior Psychomotor Activities: Normal Exhibits Abnormal Movement: No - Attitude and Relatedness Attitude and Relatedness: Needy Eye Contact: Good - Speech Quality: Unpressured Latencies: Normal Quantity: Copious - Mood Patient's Decription of Mood: "Okay" - Affect Observed Affect: Tearful Affect Consistent with: Dysphoria - Thought Process Patient's Thought Process: Coherent, Circumstantial Thought Content: Yes Passive Wish, Yes Suicidal Planning, No Homicidal Ideation, No Paranoid Ideation - Sensorium Experiencing Hallucinations: No, Sensorium is Clear Type of Hallucinations: Visual: No, Auditory: No, Command: No - Level of Consciousness Level of Consciousness: Alert Orientation: Yes Intact, Yes Orientated to Time, Yes Orientated to Place, Yes Orientated to Person - Impulse Control Impulse Control: Impaired - Insight and Judgement Insight and Judgement: Fair - Group Participation Particating in Group Activities: Yes - Medication Management Medication Management Adherence: Yes Assessment - Assessment Merits Inpatient Hospitalization: For Immediate Safety, For Stabilization Inpatient DSM-V Dx: F31.81 Clinical Impression: 42 y.o. , female with a history of bipolar disorder and borderline PD arrived at the hospital on a voluntary basis seeking inpatient care for depressed mood and SI in the context of discontinuation of mood stabilizer and family stress. Plan - Plan Treatment Plan: Name: AMERICO CHAPARRO Birthdate: 1975 [id number] Resume lamotrigine at 50mg PO qday. Continue inpatient-level care. Add Ativan 1 mg at bedtime for sleep. Continue working with Aleyda Jeter LCSW, to interact with CPS. Continue meds as they are. Continue to pursue discussion with CPS and build a plan for discharge. Discharge is tentatively set for Monday. She believes she will feel refreshed at that point and ready to face what lies ahead. Medications: Current Medications Acetaminophen (Tylenol Tab*) 650 mg PO Q4H PRN PRN Reason: for pain; or Temp >101 F Al Hydrox/Mg Hydrox/Simethicone (Maalox Plus*) 30 ml PO Q4H PRN PRN Reason: INDIGESTION Estradiol (Estradiol Patch 0.0375/Day*) 1 patch TRANSDERM .TWICE WEEKLY [facility] Last Admin: 09/17/18 21:35 Dose: 1 patch Hydroxyzine HCl (Atarax Tab*) 50 mg PO Q6H PRN PRN Reason: ANXIETY Last Admin: 09/17/18 04:17 Dose: 50 mg Lamotrigine (Lamictal Tab(*)) 50 mg PO DAILY [facility] Last Admin: 09/19/18 08:45 Dose: 50 mg Lorazepam (Ativan Tab(*)) 1 mg PO Q6H PRN PRN Reason: ANXIETY Last Admin: 09/18/18 19:07 Dose: 1 mg Lorazepam (Ativan Tab(*)) 1 mg PO BEDTIME [facility] Last Admin: 09/18/18 21:35 Dose: 1 mg Metoprolol Tartrate (Lopressor Tab*) 50 mg PO BID [facility] Last Admin: 09/19/18 08:45 Dose: 50 mg Pto Nf Med* Cabergoline 0.5 Mg Tab 0.5 admin PO MoFr@2100 [facility] Last Admin: 09/17/18 20:59 Dose: 0.5 admin Pto Nf Med* Fenofibrate 145 Mg Tab 1 admin PO 1830 [facility] Last Admin: 09/19/18 17:45 Dose: 1 admin Pto Nf Med* Fish Oil (1200 Mg) 1 admin PO 1700 [facility] Last Admin: 09/19/18 17:45 Dose: 1 admin Pt Own Nf Med* Evening [place] Oil 1000 Mg. 1 admin TOPICAL BID [facility] Last Admin: 09/19/18 08:48 Dose: 1 admin Non Formulary Med7* (Ricola Cough Drops.) 1 admin PO Q2H PRN PRN Reason: COUGH Last Admin: 09/15/18 20:37 Dose: 1 admin Pto Nf Med* B12 500 (Mcg) 1 admin PO DAILY [facility] Last Admin: 09/19/18 08:47 Dose: 1 admin Throat Lozenges (Chloraseptic Dorian*) 1 dorian PO Q6H PRN PRN Reason: SORE THROAT Last Admin: 09/16/18 21:37 Dose: 1 dorian - Discharge Plan Discharge Plan: Outpatient Follow Up
[2018-09-19] MEDS: LORazepam TAB(*) 1 MG PO SCH (21:52)
[2018-09-20] MEDS: Metoprolol Tartrate TAB* 50 mg PO SCH ×2 (09:34→20:46)
[2018-09-20] MEDS: lamoTRIgine TAB(*) 25 MG PO SCH (09:34)
[2018-09-20] MEDS: EVENING PRIMROSE OIL TOPICAL SCH ×2 (09:35→22:51)
[2018-09-20] MEDS: CYANOCOBALAMIN 500 MCG PO SCH (09:35)
--- NOTE | 2018-09-20 11:31 | PN ---
MHU: Group Therapy Note - Service Type Service Type: [id number] Group Psychotherapy - Cognitive Behavioral Group Therapy ( CBT):Patient was attentive and participatory in CBT programming this morning, and remained in good behavioral control. Patient expressed positive insights regarding relevant treatment interventions and goals.
[2018-09-20] MEDS: LORazepam TAB(*) 1 MG PO PRN (14:58)
--- NOTE | 2018-09-20 15:11 | PN ---
Subjective - Subjective Date of Service: 09/20/18 Service Type: 31670 Hosp care 15 min low complexity Subjective: Americo had a rough day today. She met with Aleyda Jeter LCSW, who accompanied her through a conference call with CPS. Americo became quite upset and was tearful throughout it, but she was able to eventually calm down and take steps to solving her own problems and making arrangements to have her own legal representation. Americo presented as more calm and emotionally put together than she did yesterday and even earlier in the day. She feels like she is making strong choices to improve her chances to get what she wants without resorting to thoughts of suicide. Objective - Appearance Appearance: Well Developed/Nourished Dysmorphic Features: No Hygiene: Normal Grooming: Well Kept - Behavior Psychomotor Activities: Normal Exhibits Abnormal Movement: No - Attitude and Relatedness Attitude and Relatedness: Needy Eye Contact: Good - Speech Quality: Unpressured Latencies: Normal Quantity: Copious - Mood Patient's Decription of Mood: "Okay" - Affect Observed Affect: Labile Affect Consistent with: Dysphoria - Thought Process Patient's Thought Process: Coherent, Goal Directed Thought Content: Yes Passive Wish, No Suicidal Planning, No Homicidal Ideation, No Paranoid Ideation - Sensorium Experiencing Hallucinations: No, Sensorium is Clear Type of Hallucinations: Visual: No, Auditory: No, Command: No - Level of Consciousness Level of Consciousness: Alert Orientation: Yes Intact, Yes Orientated to Time, Yes Orientated to Place, Yes Orientated to Person - Impulse Control Impulse Control: Tenuous - Insight and Judgement Insight and Judgement: Fair - Group Participation Particating in Group Activities: Yes - Medication Management Medication Management Adherence: Yes Assessment - Assessment Inpatient DSM-V Dx: F31.81 Clinical Impression: 42 y.o. , female with a history of bipolar disorder and borderline PD arrived at the hospital on a voluntary basis seeking inpatient care for depressed mood and SI in the context of discontinuation of mood stabilizer and family stress. Plan - Plan Treatment Plan: Name: AMERICO CHAPARRO Birthdate: 1975 [id number] Resume lamotrigine at 50mg PO qday. Continue inpatient-level care. Add Ativan 1 mg at bedtime for sleep. Continue working with Aleyda Shippos, [employer], to interact with CPS. Continue meds as they are. Continue to pursue discussion with CPS and build a plan for discharge. Discharge is tentatively set for Monday. She believes she will feel refreshed at that point and ready to face what lies ahead. CPS was contacted effectively. Americo is now preparing to work through legal issues. Medications: Current Medications Acetaminophen (Tylenol Tab*) 650 mg PO Q4H PRN PRN Reason: for pain; or Temp >101 F Al Hydrox/Mg Hydrox/Simethicone (Maalox Plus*) 30 ml PO Q4H PRN PRN Reason: INDIGESTION Estradiol (Estradiol Patch 0.0375/Day*) 1 patch TRANSDERM .TWICE WEEKLY [facility] Last Admin: 09/17/18 21:35 Dose: 1 patch Hydroxyzine HCl (Atarax Tab*) 50 mg PO Q6H PRN PRN Reason: ANXIETY Last Admin: 09/17/18 04:17 Dose: 50 mg Lamotrigine (Lamictal Tab(*)) 50 mg PO DAILY [facility] Last Admin: 09/20/18 09:34 Dose: 50 mg Lorazepam (Ativan Tab(*)) 1 mg PO Q6H PRN PRN Reason: ANXIETY Last Admin: 09/20/18 14:58 Dose: 1 mg Lorazepam (Ativan Tab(*)) 1 mg PO BEDTIME [facility] Last Admin: 09/19/18 21:52 Dose: 1 mg Metoprolol Tartrate (Lopressor Tab*) 50 mg PO BID [facility] Last Admin: 09/20/18 09:34 Dose: 50 mg Pto Nf Med* Cabergoline 0.5 Mg Tab 0.5 admin PO MoFr@2100 [facility] Last Admin: 09/17/18 20:59 Dose: 0.5 admin Pto Nf Med* Fenofibrate 145 Mg Tab 1 admin PO 1830 [facility] Last Admin: 09/19/18 17:45 Dose: 1 admin Pto Nf Med* Fish Oil (1200 Mg) 1 admin PO 1700 [facility] Last Admin: 09/19/18 17:45 Dose: 1 admin Pt Own Nf Med* Evening [place] Oil 1000 Mg. 1 admin TOPICAL BID [facility] Last Admin: 09/20/18 09:35 Dose: Not Given Non Formulary Med7* (Ricola Cough Drops.) 1 admin PO Q2H PRN PRN Reason: COUGH Last Admin: 09/15/18 20:37 Dose: 1 admin Pto Nf Med* B12 500 (Mcg) 1 admin PO DAILY [facility] Last Admin: 09/20/18 09:35 Dose: 1 admin Throat Lozenges (Chloraseptic Dorian*) 1 dorian PO Q6H PRN PRN Reason: SORE THROAT Last Admin: 09/16/18 21:37 Dose: 1 dorian - Discharge Plan Discharge Plan: Outpatient Follow Up
[2018-09-20] MEDS: FENOFIBRATE 145 MG PO SCH (17:52)
[2018-09-20] MEDS: FISH OIL 1200 MG PO SCH (17:53)
[2018-09-20] MEDS: LORazepam TAB(*) 1 MG PO SCH (20:45)
[2018-09-21] MEDS: Metoprolol Tartrate TAB* 50 mg PO SCH ×2 (09:07→21:08)
[2018-09-21] MEDS: lamoTRIgine TAB(*) 25 MG PO SCH (09:07)
[2018-09-21] MEDS: CYANOCOBALAMIN 500 MCG PO SCH (09:09)
[2018-09-21] MEDS: EVENING PRIMROSE OIL TOPICAL SCH ×2 (09:10→21:09)
--- NOTE | 2018-09-21 13:15 | PN ---
MHU: Group Therapy Note - Service Type Service Type: [id number] Group Psychotherapy - Cognitive Behavioral Group Therapy ( CBT):Patient was attentive and participatory in CBT programming this morning, and remained in good behavioral control. Patient expressed positive insights regarding relevant treatment interventions and goals.
[2018-09-21] MEDS: LORazepam TAB(*) 1 MG PO PRN (13:27)
[2018-09-21] MEDS: CABERGOLINE 0.5 MG PO SCH (21:08)
[2018-09-21] MEDS: LORazepam TAB(*) 1 MG PO SCH (22:02)
--- NOTE | 2018-09-21 22:49 | PN ---
Subjective - Subjective Date of Service: 09/21/18 Service Type: [id number] Hosp care 15 min low complexity Subjective: Amanda has managed from the hospital to obtain a excellence manager to get her younger son back. She has also had a long argument with her which required her to hang up on him twice due to his driving her truck while intoxicated. She also believes he is threatening to rehome her pets. She phoned the police who came to his house to deliver a warning. Amanda decided she wanted to go home for the weekend, as she wanted to check on her pets and her truck. Instead, she was encouraged to stay for the weekend and allow some of the chaos to calm down. She still hasn't convincingly stated that she has abandoned her plan to drink a bottle of wine and take her medication in an overdose. Objective - Appearance Appearance: Well Developed/Nourished Dysmorphic Features: No Hygiene: Normal Grooming: Well Kept - Behavior Psychomotor Activities: Normal Exhibits Abnormal Movement: No - Attitude and Relatedness Attitude and Relatedness: Superficially Cooperative Eye Contact: Good - Speech Quality: Unpressured Latencies: Normal Quantity: Copious - Mood Patient's Decription of Mood: "Upset" - Affect Observed Affect: Labile Affect Consistent with: Dysphoria - Thought Process Patient's Thought Process: Coherent, Goal Directed, Circumstantial Thought Content: Yes Passive Wish, Yes Suicidal Planning, No Homicidal Ideation, No Paranoid Ideation - Sensorium Experiencing Hallucinations: No, Sensorium is Clear Type of Hallucinations: Visual: No, Auditory: No, Command: No - Level of Consciousness Level of Consciousness: Alert Orientation: Yes Intact, Yes Orientated to Time, Yes Orientated to Place, Yes Orientated to Person - Impulse Control Impulse Control: Tenuous - Insight and Judgement Insight and Judgement: Fair - Group Participation Particating in Group Activities: Yes - Medication Management Medication Management Adherence: Yes Assessment - Assessment Inpatient DSM-V Dx: F31.81 Clinical Impression: 42 y.o. , female with a history of bipolar disorder and borderline PD arrived at the hospital on a voluntary basis seeking inpatient care for depressed mood and SI in the context of discontinuation of mood stabilizer and family stress. Plan - Plan Treatment Plan: Name: AMERICO CHAPARRO Birthdate: 1975 [id number] Resume lamotrigine at 50mg PO qday. Continue inpatient-level care. Add Ativan 1 mg at bedtime for sleep. Continue working with Aleyda Jeter LCSW, to interact with CPS. Continue meds as they are. Continue to pursue discussion with CPS and build a plan for discharge. Discharge is tentatively set for Monday. She believes she will feel refreshed at that point and ready to face what lies ahead. CPS was contacted effectively. Americo is now preparing to work through legal issues. She will be discharged Monday morning. Medications: Current Medications Acetaminophen (Tylenol Tab*) 650 mg PO Q4H PRN PRN Reason: for pain; or Temp >101 F Al Hydrox/Mg Hydrox/Simethicone (Maalox Plus*) 30 ml PO Q4H PRN PRN Reason: INDIGESTION Estradiol (Estradiol Patch 0.0375/Day*) 1 patch TRANSDERM .TWICE WEEKLY COUNT INCLUDES THE [facility] Last Admin: 09/17/18 21:35 Dose: 1 patch Hydroxyzine HCl (Atarax Tab*) 50 mg PO Q6H PRN PRN Reason: ANXIETY Last Admin: 09/17/18 04:17 Dose: 50 mg Lamotrigine (Lamictal Tab(*)) 50 mg PO DAILY COUNT INCLUDES THE [facility] Last Admin: 09/21/18 09:07 Dose: 50 mg Lorazepam (Ativan Tab(*)) 1 mg PO Q6H PRN PRN Reason: ANXIETY Last Admin: 09/21/18 13:27 Dose: 1 mg Lorazepam (Ativan Tab(*)) 1 mg PO BEDTIME COUNT INCLUDES THE [facility] Last Admin: 09/21/18 22:02 Dose: 1 mg Metoprolol Tartrate (Lopressor Tab*) 50 mg PO BID COUNT INCLUDES THE [facility] Last Admin: 09/21/18 21:08 Dose: Not Given Pto Nf Med* Cabergoline 0.5 Mg Tab 0.5 admin PO MoFr@2100 COUNT INCLUDES THE [facility] Last Admin: 09/21/18 21:08 Dose: 0.5 admin Pto Nf Med* Fenofibrate 145 Mg Tab 1 admin PO 1830 COUNT INCLUDES THE [facility] Last Admin: 09/20/18 17:52 Dose: 1 admin Pto Nf Med* Fish Oil (1200 Mg) 1 admin PO 1700 COUNT INCLUDES THE [facility] Last Admin: 09/20/18 17:53 Dose: 1 admin Pt Own Nf Med* Evening [place] Oil 1000 Mg. 1 admin TOPICAL BID GENEVA Last Admin: 09/21/18 21:09 Dose: Not Given Non Formulary Med7* (Ricola Cough Drops.) 1 admin PO Q2H PRN PRN Reason: COUGH Last Admin: 09/15/18 20:37 Dose: 1 admin Pto Nf Med* B12 500 (Mcg) 1 admin PO DAILY GENEVA Last Admin: 09/21/18 09:09 Dose: 1 admin Throat Lozenges (Chloraseptic Dorian*) 1 dorian PO Q6H PRN PRN Reason: SORE THROAT Last Admin: 09/16/18 21:37 Dose: 1 dorian - Discharge Plan Discharge Plan: Outpatient Follow Up
[2018-09-22] MEDS: Metoprolol Tartrate TAB* 50 mg PO SCH ×2 (09:21→20:41)
[2018-09-22] MEDS: lamoTRIgine TAB(*) 25 MG PO SCH (09:22)
[2018-09-22] MEDS: FENOFIBRATE 145 MG PO SCH ×2 (09:29→16:57)
[2018-09-22] MEDS: FISH OIL 1200 MG PO SCH ×2 (09:29→16:57)
[2018-09-22] MEDS: CYANOCOBALAMIN 500 MCG PO SCH (11:06)
[2018-09-22] MEDS: EVENING PRIMROSE OIL TOPICAL SCH ×2 (11:06→22:21)
[2018-09-22] MEDS: LORazepam TAB(*) 1 MG PO SCH (22:19)
[2018-09-23] MEDS: Metoprolol Tartrate TAB* 50 mg PO SCH ×2 (07:53→20:53)
[2018-09-23] MEDS: lamoTRIgine TAB(*) 25 MG PO SCH (07:53)
[2018-09-23] MEDS: EVENING PRIMROSE OIL TOPICAL SCH ×2 (09:06→22:08)
[2018-09-23] MEDS: CYANOCOBALAMIN 500 MCG PO SCH (09:06)
[2018-09-23] MEDS: FISH OIL 1200 MG PO SCH (17:11)
[2018-09-23] MEDS: FENOFIBRATE 145 MG PO SCH (17:11)
[2018-09-23] MEDS: LORazepam TAB(*) 1 MG PO SCH (22:07)
[2018-09-24 08:16] VITALS: BP 118/65
[2018-09-24] MEDS: Metoprolol Tartrate TAB* 50 mg PO SCH (08:33)
[2018-09-24] MEDS: lamoTRIgine TAB(*) 25 MG PO SCH (08:33)
[2018-09-24] MEDS: EVENING PRIMROSE OIL TOPICAL SCH (08:34)
[2018-09-24] MEDS: CYANOCOBALAMIN 500 MCG PO SCH (08:34)
--- NOTE | 2018-09-24 13:50 | DS ---
DISCHARGE SUMMARY: DATE OF ADMISSION: 09/13/18 DATE OF DISCHARGE: 09/24/18 PROVIDER: Dalila Alford NP in Psychiatry. SUPERVISING PHYSICIAN: Dr. Gavin Lepe.* (DICTATED BY DALILA ALFORD NP ) DIAGNOSES: [place] I: Bipolar 2 disorder. [place] II: Borderline personality disorder. CONDITION AT THE TIME OF DISCHARGE: Improved, psychiatrically cleared, stable. Delma participated in groups and was social with peers. Her is agreeable to discharge. She has done well here psychiatrically. She tolerated medication changes well. She will be attending [facility]. MENTAL STATUS EXAMINATION: At the time of discharge, Delma is calm, cooperative, and makes good eye contact. She is alert and oriented x3. Her grooming is good. Her speech pace is slow to normal. Her thought processes are logical. She is not psychotic or delusional. She denies AH, VH, SI, and HI. Her insight and judgment are fair. She is willing to follow up and she is urged to see her therapist. DISCHARGE INSTRUCTIONS TO THE PATIENT: A. Medications: 1. Estradiol patch 0.035 per day. 2. Hydroxyzine HCl 50 mg p.r.n. anxiety q.6 hours, dispensed 30. 3. Lamictal 50 mg daily, dispensed 60. 4. Metoprolol 50 mg b.i.d. Several non-formulary medications includin. Fenofibrate. 2. Fish oil. 3. B12. 4. Vitamin D. 5. Evening primrose oil. B. Diet is regular. C. Activities are as tolerated. Delma is a nonsmoker. There are no studies pending at the time of discharge. D. Followup care: She has an appointment on 09/26/18 with her therapist, Chichi , at 4:45 p.m. She also is referred to seeing her primary care physician who is Anel Calixto within 30 days of discharge. E. Substance abuse followup is not indicated. HOSPITAL COURSE: Part A: Chief Complaint: "I was thinking of taking my blood pressure medications because I wanted to go to sleep and not wake up." The patient is a 42-year-old female with a history of bipolar disorder as well as borderline personality disorder, who arrives brought in by her and is here on a voluntary status following her children being taken temporarily away from her by CPS and given to her mother, which caused her to fall to pieces and have suicidal thoughts that included a plan to take her blood pressure medications. Delma has been hospitalized periodically since age 19. This is her first hospitalization in 5 years and she is quite distressed that that is the case. She states that she has in the recent past been able to use coping strategies, yet without using those coping strategies, all she could think about are her children. Her is not completely supportive of her. He is also an alcoholic. CPS states that she has essentially chosen to stay with an alcoholic in preference to her children. She states she must have the children , otherwise she will "go over the edge...she cannot breathe without them." The children's names are Joon and Mumtaz. Joon is 17, Mumtaz is 14. Part B: Psychiatric treatment was rendered. Delma was admitted to the adult behavioral unit and placed on 15-minute checks for safety. She did advance to 30- minute checks. Delma did well on the unit and went to groups. She interacted with peers well. She tolerated the increase of Lamictal to 50 mg. she also tolerated the use of hydroxyzine and Ativan. She was taking Ativan 1 mg to help her sleep, which was discontinued over the past weekend in order to prepare her for discharge where she would be without Ativan at all. She is taking multiple supplements whose function is unknown, but she takes them and is quite satisfied with them. These have been continued from home. She is not on an antipsychotic. We did not meet with the family, but much of her time here was spent on the phone or doing paperwork related to her family. She wrote many journal entries related to her dissatisfaction with her older son, Joon and her desire to have her younger son Mumtaz come and live with her. She also worried about the fact that her mother has a negative influence on the children and this is based on her experience as a child with the same mom. Delma has a court date on Monday and she has prepared for this by asking her to move out, by asking her product management internship to please ask for custody of her younger son back while allowing her older son to stay with her mother as she has many problems with Joon, the older son and cannot manage him effectively it would seem. No consults were entered. She is improved. She is no longer suicidal. She appears sad and her symptoms regarding lack of being completely independent of other peoples opinions and what she needs to do is slightly of concern. DALILA ALFORD, [employer]OKER [id number]/CPS #: [id number] [place]AR[place]
== END 2018-09-24 11:20 | disposition home or self-care (01) | DRG 885 ==
LOC: ED 08:31 → BSU 15:19
PROVIDERS: ADMIT Psychiatry & Neurology Psychiatry; ATTEND Psychiatry & Neurology Psychiatry
DX: F31.81 Bipolar II disorder (principal); R45.851 Suicidal ideations; F60.3 Borderline personality disorder; Z09 Encounter for follow-up examination after completed treatment for conditions other than malignant neoplasm; Z88.5 Allergy status to narcotic agent; Z88.8 Allergy status to other drugs, medicaments and biological substances
CPT/HCPCS: 36415; 80053; 80061; 80307; 80320; 80329; 81003; 83036; 84443; 85025; 90853; 99222; 99231; 99232; 99238; 99283; A9270-GY; G0480